=== PATIENT | male | born 1975 | race Caucasian/White ===

== ENCOUNTER 2025-03-06 18:07 | Emergency (ER) | payer MEDICAID ==
[~2025-03-06] VITALS: Ht 177.8 cm; Wt 70.5 kg
--- NOTE | 2025-03-06 18:52 | Physician Documentation ---
History of Present Illness ~ Chief Complaint: Trauma Level 2 Stated Complaint: ANKLE PAIN Time Seen by MD: 18:51 HPI 49-year-old male who presents with a fall off a roof He tells me that he slipped and fell, slid off of the roof, landing on his legs and buttocks. This occurred early this morning. He was lying in bed all day, and eventually the pain in his leg was too bad so he came in to get checked out. He reports pain in his lower left leg and ankle region. He also reports pain in his low back in the midline. He denies any head or neck injury or pain. No chest injury or pain, no upper back pain. He denies any right leg injury or pain. No arm injuries. On the left leg, no pain in the knee, thigh or hip. He has been taking ibuprofen Medication Reconciliation Allergies: Coded Allergies: No Known Allergies (Unverified , 03/06/25) Review of Systems Musculoskeletal: Reports: pain, swelling, back pain Physical Exam Vital Signs: Temperature: 98.0, Heart Rate: 91, Respiratory Rate: 16, BP: 99/70, Pulse Oximetry: 98, Weight: 70.450 Oxygen Flow Rate: 0 Physical Exam General: This is a healthy-appearing middle-aged man, partner at bedside HEENT: Atraumatic, no tenderness on palpation of the scalp, oropharynx is moist C-spine: No midline tenderness, full range of motion without pain Heart: Regular rate and rhythm, normal-appearing peripheral perfusion Lungs: normal work of breathing, normal oxygen saturation on room air Abdomen: Soft, nondistended, nontender all quadrants Back: Mild generalized tenderness on palpation of the midline lumbar spine only. No tenderness on palpation of the thoracic spine. Extremities: Warm and well-perfused Left lower extremity: The patient has obvious swelling to the lower ankle and distal lower leg. He has focal tenderness on palpation around the distal fibula. Generalized discomfort on palpation around the ankle. No focal bony point tenderness on palpation of the heel or foot bones. No tenderness on palpation of the knee or hip bones. Neuro: Alert and oriented, no weakness or numbness to the extremities Psychiatric: Calm and cooperative with exam Progress Results/Orders Results/Orders Orders - WILLI PAINTING MD Tib/Fib (03/06/25 19:00) Foot, Complete (3vw Min) (03/06/25 19:00) Ct Lumbar Spine (03/06/25 19:00) Ct Pelvis (03/06/25 19:00) Completed Orders - WILLI PAINTING MD Tib/Fib (03/06/25 19:00) Foot, Complete (3vw Min) (03/06/25 19:00) Ct Lumbar Spine (03/06/25 19:00) Ct Pelvis (03/06/25 19:00) Vital Signs 03/06/25 03/06/25 03/06/25 03/06/25 18:33 20:21 20:21 20:21 Temp 98.0 98.1 98.1 Pulse 91 78 83 Resp 16 22 22 B/P (MAP) 99/70 115/77 (90) Pulse Ox 98 98 98 O2 Delivery Room Air O2 Flow Rate 0 03/06/25 20:55 Pulse 83 Resp 18 B/P (MAP) 118/78 (91) Pulse Ox 98 EKG/XRAY/CT/US/VASC/MRI Bone/Soft Tissue X-Ray (Ext.) : Additional Comment I personally interpreted the x-ray, and it shows: A nondisplaced fibula fracture CT : Impression I personally interpreted the CT scan, and this shows lumbar compression fractures Medical Decision Making Additional information obtaine: family Findings Spoke to his partner, who confirms his history Differential Dx:Considerations: Include: Closed head injury, Fracture(s), Pneumothorax, Spine injury, Abrasion(s), Contusion(s), Laceration(s) Additional Comments The patient presents with a fall from height. On exam he has isolated pain to his left leg and low back. I saw the patient initially in triage, and so x-rays and CT scan were ordered. X-ray of his left leg shows a fibula fracture. He is placed in a walking boot and given crutches. CT scan of his back and pelvis show multiple compression fractures but no other dangerous findings. He has no other evidence of dangerous injury including no head or neck injury, no upper spine or chest injury, no intra-abdominal injury or other extremity injury. He will be discharged with home care instructions, a walking boot, and outpatient follow up. Departure Time of Disposition: 21:30 Disposition: 01 HOME / SELF CARE / HOMELESS Impression: Primary Impression: Fx shaft fibula-closed Additional Impressions: Lumbar compression fracture Fall from height of greater than 3 feet Condition: Stable Discharge Instructions: Fibular Fracture Rehab, Nondisplaced Fibular Ankle Fracture Treated With Immobilization, Spinal Compression Fracture Referrals: NO PRIMARY CARE PROVIDER (PCP) Education Educated: Patient, Family Educated regarding: diagnosis, treatment, need for follow up Signature Scribe Signature: na Attestation: WILLI Mccarty MD Mar 06, 2025 18:52
--- NOTE | 2025-03-06 19:21 | RADIOLOGY REPORT ---
CLINICAL INDICATION: LEG PAIN TECHNIQUE: 4 radiographic views of the left tibia and fibula were obtained. Comparison: None FINDINGS/IMPRESSION: There is subtle nondisplaced fracture through the mid to distal diaphysis of the fibula. 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
--- NOTE | 2025-03-06 19:22 | RADIOLOGY REPORT ---
CLINICAL INDICATION: FOOT PAIN TECHNIQUE: DI FOOT, COMPLETE (3VW MIN) Comparison: None FINDINGS: No osseous or joint abnormality identified with no evidence of fracture or dislocation. Joint spaces are preserved. Soft tissues appear unremarkable. IMPRESSION: No evidence of fracture or dislocation.
--- NOTE | 2025-03-06 20:06 | RADIOLOGY REPORT ---
EXAM: CT CT LUMBAR SPINE HISTORY: fall from roof, low back pain COMPARISON: None CTDIvol mGy, DLP mGy*cm. TECHNIQUE: Multiple axial CT images of the spine were obtained using bone algorithm. Axial and coronal reformatting was done. Bone and soft tissue windows were reviewed. FINDINGS: There is normal alignment of the lumbar spine. There are mild acute compression fractures of the superior endplates of the L1, L2 and L3 vertebral bodies with mild loss of vertebral body height of L1 and L3 without retropulsion. Paraspinal soft tissues appear unremarkable. T12-L1: No abnormality demonstrated. L1-L2: No abnormality demonstrated. L2-L3: Mild disc bulge and mild facet arthropathy greater on the right side without spinal canal or neural foraminal stenosis. L3-L4: Mild disc bulge and mild facet arthropathy with mild neural foraminal narrowing without spinal canal stenosis. L4-L5: Disc bulge and mild facet arthropathy with moderate bilateral neural foraminal narrowing without spinal canal stenosis. L5-S1: Severe degenerative disc disease. Disc bulge-osteophyte eccentric to the left side mildly encroaching upon the left greater than right S1 nerve roots. Bolehlpe-[id number] left-sided neural foraminal stenosis with encroachment on the left L5 nerve root and [id number]-[id number] right-sided neural foraminal narrowing. No spinal canal stenosis. IMPRESSION: Mild acute compression fractures of the superior endplates of the L1 to L3 vertebral bodies.
[2025-03-06 20:21] VITALS: TEMP 98.1
[2025-03-06 20:55] VITALS: BP 118/78; PULSE 83; RESP 18; O2SAT 98
--- NOTE | 2025-03-06 23:22 | RADIOLOGY REPORT ---
History: fall from roof, low back pain, landed on legs/pelvis Comparison Study: None Technique: Multidetector spiral CT of the pelvis was performed from iliac crests to pubic symphysis without intravenous contrast. Axial, coronal and sagittal multiplanar reformats were performed by the technologist on a separate workstation. Radiation Dose : CT Dose: CTDI volume is 20.96 mGy. Dose-length product is 565.74 mGy*cm Findings: Visualized bowel: Retained colorectal stool. Small bowel and colon are otherwise normal in caliber and distribution. The appendix is normal. Ascites: Absent Lymphadenopathy: No pelvic or mesenteric lymphadenopathy. Pelvis Wall and Mesentery: Unremarkable. Vasculature: The visualized abdominal aorta is normal in size and caliber. Atherosclerotic vascular calcifications. Abdominal and pelvic vessels demonstrate normal enhancement. Pelvic Organs: Unremarkable Musculoskeletal: No aggressive focal bony lesions, acute fractures or dislocation. Degenerative changes include L5-S1 disc height loss with adjacent endplate sclerosis and anterior osteophytosis. Moderate osteoarthritic degenerative change of the bilateral hips includes joint space narrowing, marginal osteophytosis and acetabular subchondral sclerosis. Bladder: Unremarkable IMPRESSION: 1. No acute fracture or dislocation. Degenerative changes noted. 2. Retained colorectal stool.
== END 2025-03-06 21:47 | disposition home or self-care (01) ==
LOC: ER 18:08
DX: S32.008A Other fracture of unspecified lumbar vertebra, initial encounter for closed fracture (principal); W13.2XXA Fall from, out of or through roof, initial encounter; Y93.89 Activity, other specified; Y92.89 Other specified places as the place of occurrence of the external cause; Y99.8 Other external cause status
CPT/HCPCS: 72131; 72192; 73590; 73630; 99284; L4360